=== PATIENT | male | born 1980 | race Caucasian/White ===

== ENCOUNTER 2017-02-06 19:20 | Emergency (ER) | payer OTHER ==
[2017-02-06 20:03] LABS: BASOPHIL 0.2 % (0-2); EOSINOPHIL 1.3 % (0-5); HCT 40.6 % (42.0-52.0); LYMPHOCYTE 14.7 % (15-48); MCH 30.9 pg (25.0-31.0); MCHC 34.5 g/dL (32.0-36.0); MCV 89.6 fL (78.0-100.0); MONOCYTE 15.7 % (0-12); MPV 10.6 fL (6.0-9.5); NEUTROPHIL 68.1 % (41-80); PLT 268 K/uL (150-400); RBC 4.53 M/uL (4.70-6.00); RDW 14.9 % (11.5-14.0)
[2017-02-06 20:19] LABS: ALBUMIN 4.1 g/dL (3.5-5.0); BILIRUBIN - TOTAL 0.6 mg/dL (0.1-1.0); GLOBULIN (CALCULATION) 2.8 g/dL (2.2-4.2); POTASSIUM 3.4 mmol/L (3.5-5.1); TOTAL PROTEIN 6.9 g/dL (6.4-8.3)
[2017-02-06 20:59] LABS: BAND 5 % (0-10); LYMPHOCYTE(M) 12 % (15-48); MONOCYTE(M) 9 % (0-12); NEUTROPHILS(M) 73 % (41-80); TOTAL CELL COUNT 100; VARIANT LYMPHOCYTE 1
[2017-02-06 21:00] LABS: PLATELET ESTIMATE NORMAL; PLATELET MORPHOLOGY NORMAL
[2017-02-06 22:22] LABS: AMPHETAMINES POSITIVE (NEGATIVE); BENZODIAZEPINES NEGATIVE (NEGATIVE); COCAINE NEGATIVE (NEGATIVE)
[2017-02-06 22:23] LABS: BARBITURATES NEGATIVE (NEGATIVE); MARIJUANA (THC) NEGATIVE (NEGATIVE); METHADONE NEGATIVE (NEGATIVE); TRICYCLIC ANTIDEPRESSANT NEGATIVE (NEGATIVE)
== END 2017-02-06 23:07 | disposition home or self-care (01) ==
LOC: FER 19:20 → FMS 22:32 → FER 22:32
PROVIDERS: Emergency Medicine
DX: L03.211 Cellulitis of face (principal); R22.32 Localized swelling, mass and lump, left upper limb; F32.9 Major depressive disorder, single episode, unspecified; Z79.899 Other long term (current) drug therapy
CPT/HCPCS: 36415; 70487; 71010; 80053; 80305; 85651; 86140; J1885; J2930; Q9967